=== PATIENT | male | born 1980 | race Caucasian/White ===

== ENCOUNTER 2024-10-18 10:37 | Emergency (ER) | payer OTHER ==
[~2024-10-18] VITALS: Ht 172.7 cm; Wt 75.0 kg
[2024-10-18 10:50] VITALS: O2SAT 99
[2024-10-18] MEDS ORDERED: LIDO-53 TP (11:26)
[2024-10-18] MEDS: KETOROLAC 30MG/ML VIAL IM ONE (11:48)
[2024-10-18] MEDS: LIDOCAINE 5% PATCH TOP SCH (11:48)
[2024-10-18 11:49] VITALS: BP 131/68; PULSE 89; RESP 16; TEMP 36.7; O2SAT 99
== END 2024-10-18 12:04 | disposition home or self-care (01) ==
LOC: ER 10:37
DX: M54.9 Dorsalgia, unspecified (principal); Z98.890 Other specified postprocedural states
CPT/HCPCS: 99283; 96372; J1885